=== PATIENT | female | born 1945 | race Caucasian/White ===

== ENCOUNTER → 2016-05-13 | Outpatient (CLI) | payer OTHER ==
[2016-05-13 09:38] LABS: HEMOGLOBIN 14.9 gm/dl (12.3-15.3); RED BLOOD COUNT 5.1 M/UL (4.00-5.10); WHITE BLOOD COUNT 6.5 K/UL (4.5-11.0)
[2016-05-13 10:25] LABS: BUN/CREATININE RATIO 16 (0-10)
== END ==
LOC: LAB 08:41
PROVIDERS: Internal Medicine
DX: E55.9 Vitamin D deficiency, unspecified (principal); E60 Dietary zinc deficiency; I10 Essential (primary) hypertension
CPT/HCPCS: 36415; 80048; 80061; 80076; 84443; 84630; 85025

== ENCOUNTER 2020-03-06 11:17 | Emergency (ER) | payer MEDICARE ==
[2020-03-06 12:15] LABS: HEMOGLOBIN 16.9 gm/dl (12.3-15.3); RED BLOOD COUNT 6.12 M/UL (4.00-5.10); WHITE BLOOD COUNT 7.6 K/UL (4.5-11.0)
== END 2020-03-06 17:21 | disposition left against medical advice (07) ==
LOC: ER1 11:17 → ZEROF 16:48 → ER1 16:48
PROVIDERS: Family Medicine
DX: R55 Syncope and collapse (principal); M54.2 Cervicalgia; M54.6 Pain in thoracic spine; M54.5 Low back pain; M25.551 Pain in right hip; M25.552 Pain in left hip; E03.9 Hypothyroidism, unspecified; I10 Essential (primary) hypertension; R79.89 Other specified abnormal findings of blood chemistry; Z79.01 Long term (current) use of anticoagulants; Z86.73 Personal history of transient ischemic attack (TIA), and cerebral infarction without residual deficits; Z53.20 Procedure and treatment not carried out because of patient's decision for unspecified reasons
CPT/HCPCS: 70450; 71250; 72125; 80053; 80307; 81001; 82270; 82550; 82553; 84439; 84443; 84484; 85025; 85610; 99285

== ENCOUNTER → 2020-07-17 | Outpatient (CLI) | payer MEDICARE | LOC: LBRF 16:03 | DX: N30.00 Acute cystitis without hematuria (principal) | CPT/HCPCS: 87086 ==

== ENCOUNTER → 2020-08-29 | Outpatient (CLI) | payer MEDICARE | LOC: KOH-I 15:16 | DX: S99.921A Unspecified injury of right foot, initial encounter (principal) | CPT/HCPCS: 73630 ==

== ENCOUNTER → 2020-10-09 | Outpatient (CLI) | payer MEDICARE | LOC: OPSV 14:14 | DX: T14.8XXA Other injury of unspecified body region, initial encounter (principal); W55.01XA Bitten by cat, initial encounter | CPT/HCPCS: 96365; J1335 ==

== ENCOUNTER → 2020-10-10 | Outpatient (CLI) | payer MEDICARE ==
[~2020-10-10] VITALS: Ht 160 cm; Wt 66.7 kg
== END ==
LOC: OPSV 10:57
DX: T14.8XXA Other injury of unspecified body region, initial encounter (principal); W55.01XA Bitten by cat, initial encounter
CPT/HCPCS: 96365; J1335

== ENCOUNTER → 2020-10-11 | Outpatient (CLI) | payer MEDICARE ==
[~2020-10-11] VITALS: Ht 160 cm; Wt 66.7 kg
== END ==
LOC: OPSV 11:00
DX: R60.0 Localized edema (principal); L08.9 Local infection of the skin and subcutaneous tissue, unspecified
CPT/HCPCS: 96365; J1335

== ENCOUNTER → 2020-10-12 | Outpatient (CLI) | payer MEDICARE ==
[~2020-10-12] VITALS: Ht 160 cm; Wt 66.7 kg
== END ==
LOC: OPSV 07:46
DX: T14.8XXA Other injury of unspecified body region, initial encounter (principal); W55.01XA Bitten by cat, initial encounter
CPT/HCPCS: 96365; J1335

== ENCOUNTER → 2020-10-13 | Outpatient (CLI) | payer MEDICARE | LOC: OPSV 07:32 | DX: T14.8XXA Other injury of unspecified body region, initial encounter (principal); W55.01XA Bitten by cat, initial encounter | CPT/HCPCS: 96365; J1335 ==

== ENCOUNTER → 2020-10-14 | Outpatient (CLI) | payer MEDICARE ==
[~2020-10-14] VITALS: Ht 160 cm; Wt 66.7 kg
== END ==
LOC: OPSV 11:00
DX: T14.8XXA Other injury of unspecified body region, initial encounter (principal); W55.01XA Bitten by cat, initial encounter
CPT/HCPCS: 96365; J1335

== ENCOUNTER → 2020-10-15 | Outpatient (CLI) | payer MEDICARE ==
[~2020-10-15] VITALS: Ht 160 cm; Wt 66.7 kg
== END ==
LOC: OPSV 11:00
DX: T14.8XXA Other injury of unspecified body region, initial encounter (principal); W55.01XA Bitten by cat, initial encounter
CPT/HCPCS: 96365; J1335

== ENCOUNTER → 2020-10-16 | Outpatient (CLI) | payer MEDICARE ==
[~2020-10-16] VITALS: Ht 160 cm; Wt 66.7 kg
== END ==
LOC: OPSV 11:00
DX: T14.8XXA Other injury of unspecified body region, initial encounter (principal); W55.01XA Bitten by cat, initial encounter
CPT/HCPCS: 96365; J1335

== ENCOUNTER → 2020-10-18 | Outpatient (CLI) | payer MEDICARE ==
[~2020-10-18] VITALS: Ht 160 cm; Wt 66.7 kg
== END ==
LOC: OPSV 11:00
DX: T14.8XXA Other injury of unspecified body region, initial encounter (principal); W55.01XA Bitten by cat, initial encounter
CPT/HCPCS: 96365; J1335

== ENCOUNTER → 2021-03-11 | Outpatient (CLI) | payer MEDICARE | LOC: KOH-I 12:00 | DX: R31.9 Hematuria, unspecified (principal); R11.0 Nausea; R10.9 Unspecified abdominal pain; K44.9 Diaphragmatic hernia without obstruction or gangrene; K57.10 Diverticulosis of small intestine without perforation or abscess without bleeding | CPT/HCPCS: 74176 ==